=== PATIENT | female | born 1960 | race Hispanic/Latino ===

== ENCOUNTER 2017-06-23 22:44 | Emergency (ER) | payer OTHER ==
[2017-06-23 22:51] VITALS: RESP 16; O2SAT 98
[2017-06-23] MEDS ORDERED: Morphine 4 MG/ML VIAL IVP ONE (23:11)
[2017-06-23] MEDS ORDERED: Sodium Chloride 0.9% 1,000 ML IV STA (23:11)
[2017-06-23] MEDS ORDERED: Morphine 4 MG/ML VIAL ONE ×2 (23:14→23:41)
[2017-06-23 23:30] LABS: BASO # 0.1 K/uL (0.0-0.2); BASO % 0.8 % (0.0-2.0); HEMOGLOBIN 15.1 g/dL (12.0-16.0); LYMPH # 1.2 K/uL (1.0-4.3); LYMPH % 10.1 % (20.0-40.0); MEAN CELL VOLUME 86.7 fl (81.0-99.0); MEAN CORPUSCULAR HEMOGLOBIN 29.1 pg (27.0-31.0); MEAN CORPUSCULAR HGB CONC 33.6 g/dL (33.0-37.0); MEAN PLATELET VOLUME 7.9 fl (7.2-11.7); MONO # 0.7 K/uL (0.0-0.8); NEUT # 10.2 K/uL (1.8-7.0); NEUT % 83.1 % (50.0-75.0); NRBC % 0.1 % (0.0-0.0); RBC 5.19 Mil/uL (3.80-5.20); WHITE BLOOD COUNT 12.3 K/uL (4.8-10.8)
[2017-06-23 23:44] LABS: ALB/GLOB RATIO 1.4 (1.0-2.1); ALBUMIN 4.7 g/dL (3.5-5.0); ALT/SGPT 27 U/L (9-52); AST/SGOT 23 U/L (14-36); BLOOD UREA NITROGEN 15 mg/dl (7-17); CALCIUM 9.9 mg/dL (8.4-10.2); GFR AFRICAN-AMERICAN > 60; GFR NON-AFRICAN AMERICAN > 60; LIPASE 114 U/L (23-300)
[2017-06-23] MEDS ORDERED: Iohexol 240 (50 ml) PO ONE (23:50)
--- NOTE | 2017-06-23 23:54 | ED PDOC ---
HPI: Abdomen Time Seen by Provider: 06/23/17 22:57 Chief Complaint (Nursing): Abdominal Pain Chief Complaint (Provider): abdominal pain History Per: Patient History/Exam Limitations: no limitations Onset/Duration Of Symptoms: Hrs (5), Worse Since Current Symptoms Are (Timing): Still Present Location Of Pain/Discomfort: Diffuse Quality Of Discomfort: "Pain" Associated Symptoms: Nausea, Vomiting (4 episodes), Diarrhea (4 episodes) Additional Complaint(s): 56 y/o female presents to the ED with diffuse abdominal pain onset five hours ago with associated symptoms of nausea, four episodes of non-bilious and non-bloody vomiting, and four episodes of non-bloody diarrhea. Reports the abdominal pain is acute and worse since onset. PMD: Dr. Caicedo Against Medical Advice - AMA Patient Left Against Medical Advice: The patient declines admission to the hospital and wishes to leave the Emergency Department. This action is against my medical advice. This decision was made with informed refusal. The patient was told that admission to the hospital is necessary. Explanation of the reasons why were discussed. The risks of leaving were explained to the patient and include, but are not limited to, worsening of known or currently unknown conditions, permanent disability and from undiagnosed or untreated conditions. The patient has the capacity to make this informed decision and understands my explanation of the current medical problem and risks of leaving. The patient voluntarily accepts these risks and signed an AMA form documenting our conversation. The patient was given the opportunity to ask questions and reconsider. The patient was encouraged to return to the Emergency Department at any time for further care. Past Medical History Reviewed: Historical Data, Nursing Documentation, Vital Signs Vital Signs: Last Vital Signs Temp 99.1 F 06/24/17 01:27 Pulse 81 06/24/17 01:27 Resp 16 06/24/17 01:27 BP 154/85 H 06/24/17 01:27 Pulse Ox 98 06/24/17 01:57 - Medical History PMH: No Chronic Diseases - Surgical History Other surgeries: Hysterectomy - Family History Family History: States: Unknown Family Hx - Social History Current smoker - smoking cessation education provided: No Alcohol: None Drugs: Denies - Allergies Allergies/Adverse Reactions: Allergies Allergy/AdvReac Type Severity Reaction Status Date / Time No Known Allergies Allergy Verified 06/23/17 22:48 Review of Systems ROS Statement: Except As Marked, All Systems Reviewed And Found Negative Gastrointestinal: Positive for: Nausea, Vomiting (four episodes of non-bilious and non-bloody ), Abdominal Pain, Diarrhea (non-bloody) Physical Exam - Reviewed Nursing Documentation Reviewed: Yes Vital Signs Reviewed: Yes - Physical Exam Appears: Positive for: Non-toxic, No Acute Distress, Uncomfortable Head Exam: Positive for: ATRAUMATIC, NORMAL INSPECTION, NORMOCEPHALIC Skin: Positive for: Normal Color, Warm, Dry Eye Exam: Positive for: EOMI, Normal appearance, PERRL ENT: Positive for: Normal ENT Inspection Neck: Positive for: Normal, Painless ROM, Supple. Negative for: Decreased ROM, Limited ROM Cardiovascular/Chest: Positive for: Regular Rate, Rhythm. Negative for: Murmur Respiratory: Positive for: Normal Breath Sounds. Negative for: Decreased Breath Sounds, Accessory Muscle Use, Wheezing Gastrointestinal/Abdominal: Positive for: Tenderness (mild epigastric and right upper quadrant) Back: Positive for: Normal Inspection. Negative for: L CVA Tenderness, R CVA Tenderness Extremity: Positive for: Normal ROM. Negative for: Tenderness, Pedal Edema, Deformity Neurologic/Psych: Positive for: Alert, Oriented (x3), Gait - Laboratory Results Result Diagrams: 06/23/17 23:26 06/23/17 23:26 - ECG O2 Sat by Pulse Oximetry: 98 (RA) Pulse Ox Interpretation: Normal Medical Decision Making Medical Decision Making: Time: 22:58 Initial Impression: 56 y/o female with acute abdominal pain with nausea, vomiting, and diarrhea Initial Plan: --CMP --Lipase Stat --CBC --Famotidine 20mg --Morphine 4mg --Morphine 6mg --Normal Saline 1000mls/hr --Zofran 4mg IV --Urinalysis --Reevaluation Time: 01:15 EXAM: CT Abdomen and Pelvis With Intravenous Contrast FINDINGS: Lower thorax: Small hiatal hernia. ABDOMEN: Liver: Fatty liver. Gallbladder and bile ducts: Unremarkable. No ductal dilation. Pancreas: Prominent pancreatic duct measuring 6 mm. Possible pancreatic divisum. Spleen: Left upper quadrant splenule. Adrenals: Unremarkable. No mass. Kidneys and ureters: Nonobstructive right renal stone. No obstruction. Stomach and bowel: Fluid-filled distal small bowel and terminal ileum with wall thickening. There is diffuse thickening of colon involving mid transverse colon and left colon suspicious for infectious or inflammatory bowel disease. Correlation with clinical data is recommended if Crohn's disease is clinically suspected. No obstruction. Appendix: Prominent appendix measuring 11 mm without surrounding inflammatory change or appendicolith. PELVIS: Bladder: Bladder distention. Correlation with patient's voiding status is recommended. Reproductive: Hysterectomy. ABDOMEN and PELVIS: Intraperitoneal space: Unremarkable. No free air. No significant fluid collection. Bones/joints: No acute fracture. No dislocation. Soft tissues: Unremarkable. Vasculature: There is left upper quadrant mesenteric infiltration with a prominent mesenteric vessel representing focal hemorrhage. No abdominal aortic aneurysm. Pelvic phleboliths. Lymph nodes: Unremarkable. No enlarged lymph nodes. IMPRESSION: 1. There is left upper quadrant mesenteric infiltration with a prominent mesenteric vessel representing focal hemorrhage. 2. Fluid-filled distal small bowel and terminal ileum with wall thickening. There is diffuse thickening of colon involving mid transverse colon and left colon suspicious for infectious or inflammatory bowel disease. Correlation with clinical data is recommended if Crohn's disease is clinically suspected. Addendum Dictated By: ANTHONY GREEN MD Addendum Dictated Date Time:06/24/1701/03/109 Addendum Signed by:ANTHONY GREEN MD Addendum signed Date Time: 06/24/17108 Addendum Transcribed By: FERNANDA Addendum Transcribed Date Time: 06/24/1701/03/109 ERICK/NALLELY EXAM: CT Abdomen and Pelvis With Intravenous Contrast FINDINGS: Lower thorax: Small hiatal hernia. ABDOMEN: Liver: Fatty liver. Gallbladder and bile ducts: Unremarkable. No ductal dilation. Pancreas: Prominent pancreatic duct measuring 6 mm. Possible pancreatic divisum. Spleen: Left upper quadrant splenule. Adrenals: Unremarkable. No mass. Kidneys and ureters: Nonobstructive right renal stone. No obstruction. Stomach and bowel: Fluid-filled distal small bowel and terminal ileum with wall thickening. There is diffuse thickening of colon involving mid transverse colon and left colon suspicious for infectious or inflammatory bowel disease. Correlation with clinical data is recommended if Crohn's disease is clinically suspected. No obstruction. Appendix: Prominent appendix measuring 11 mm without surrounding inflammatory change or appendicolith. PELVIS: Bladder: Bladder distention. Correlation with patient's voiding status is recommended. Reproductive: Hysterectomy. ABDOMEN and PELVIS: Intraperitoneal space: Unremarkable. No free air. No significant fluid collection. Bones/joints: No acute fracture. No dislocation. Soft tissues: Unremarkable. Vasculature: There is left upper quadrant mesenteric infiltration with a prominent mesenteric vessel representing focal hemorrhage. No abdominal aortic aneurysm. Pelvic phleboliths. Lymph nodes: Unremarkable. No enlarged lymph nodes. IMPRESSION: 1. There is left upper quadrant mesenteric infiltration with a prominent mesenteric vessel representing focal hemorrhage. 2. Fluid-filled distal small bowel and terminal ileum with wall thickening. There is diffuse thickening of colon involving mid transverse colon and left colon suspicious for infectious or inflammatory bowel disease. Correlation with clinical data is recommended if Crohn's disease is clinically suspected. Time: :26 Spoke to director of residential services on all Dr. cao. Time: :55 The patient declines admission to the hospital and wishes to leave the Emergency Department. This action is against my medical advice. This decision was made with informed refusal. The patient was told that admission to the hospital is necessary. Explanation of the reasons why were discussed. The risks of leaving were explained to the patient and include, but are not limited to, worsening of known or currently unknown conditions, permanent disability and from undiagnosed or untreated conditions. The patient has the capacity to make this informed decision and understands my explanation of the current medical problem and risks of leaving. The patient voluntarily accepts these risks and signed an AMA form documenting our conversation. The patient was given the opportunity to ask questions and reconsider. The patient was encouraged to return to the Emergency Department at any time for further care. ------- Documented by Bebo Laura acting as a scribe for Eloy Abebe MD. All medical record entries made by the Scribe were at my direction and personally dictated by me. I have reviewed the chart and agree that the record accurately reflects my personal performance of the history, physical exam, medical decision making, and the department course for this patient. I have also personally directed, reviewed, and agree with the discharge instructions and disposition. Disposition - Clinical Impression Clinical Impression: Hemorrhagic enterocolitis - Disposition Disposition: Routine/Home Disposition Time: 01:45 Condition: STABLE
[2017-06-24] MEDS ORDERED: Sodium Chloride 0.9% 100 ML ONE (00:25)
[2017-06-24] MEDS ORDERED: Iohexol 300 100 ML IJ ONE (00:25)
--- NOTE | 2017-06-24 01:04 | CT ---
EXAM: CT Abdomen and Pelvis With Intravenous Contrast CLINICAL HISTORY: 56 years old, female; Pain; Abdominal pain; Generalized; Prior surgery; Surgery date: 6+ months; Surgery type: Hysterectomy; Additional info: Abd pain TECHNIQUE: Axial computed tomography images of the abdomen and pelvis with intravenous contrast. All CT scans at this facility use one or more dose reduction techniques, viz.: automated exposure control; ma/kV adjustment per patient size (including targeted exams where dose is matched to indication; i.e. head); or iterative reconstruction technique. 558 images are submitted. Coronal and sagittal reformatted images were created and reviewed. Axial reformatted images were created and reviewed. CONTRAST: 90 mL of administered intravenously. COMPARISON: No relevant prior studies available. FINDINGS: Lower thorax: Small hiatal hernia. ABDOMEN: Liver: Fatty liver. Gallbladder and bile ducts: Unremarkable. No ductal dilation. Pancreas: Prominent pancreatic duct measuring 6 mm. Possible pancreatic divisum. Spleen: Left upper quadrant splenule. Adrenals: Unremarkable. No mass. Kidneys and ureters: Nonobstructive right renal stone. No obstruction. Stomach and bowel: Fluid-filled distal small bowel and terminal ileum with wall thickening. There is diffuse thickening of colon involving mid transverse colon and left colon suspicious for infectious or inflammatory bowel disease. Correlation with clinical data is recommended if Crohn's disease is clinically suspected. No obstruction. Appendix: Prominent appendix measuring 11 mm without surrounding inflammatory change or appendicolith. PELVIS: Bladder: Bladder distention. Correlation with patient's voiding status is recommended. Reproductive: Hysterectomy. ABDOMEN and PELVIS: Intraperitoneal space: Unremarkable. No free air. No significant fluid collection. Bones/joints: No acute fracture. No dislocation. Soft tissues: Unremarkable. Vasculature: There is left upper quadrant mesenteric infiltration with a prominent mesenteric vessel representing focal hemorrhage. No abdominal aortic aneurysm. Pelvic phleboliths. Lymph nodes: Unremarkable. No enlarged lymph nodes. IMPRESSION: 1. There is left upper quadrant mesenteric infiltration with a prominent mesenteric vessel representing focal hemorrhage. 2. Fluid-filled distal small bowel and terminal ileum with wall thickening. There is diffuse thickening of colon involving mid transverse colon and left colon suspicious for infectious or inflammatory bowel disease. Correlation with clinical data is recommended if Crohn's disease is clinically suspected.
[2017-06-24 01:09] LABS: URINE BACTERIA RARE (<OCC); URINE BILIRUBIN NEGATIVE (NEGATIVE); URINE BLOOD SMALL (NEGATIVE); URINE CLARITY CLEAR (Clear); URINE COLOR STRAW (YELLOW); URINE GLUCOSE (UA) NEG (Normal); URINE LEUKOCYTE ESTERASE TRACE Leu/uL (Negative); URINE PROTEIN NEGATIVE (NEGATIVE); URINE UROBILINOGEN 0.2-1.0 mg/dL (0.2-1.0)
[2017-06-24] MEDS ORDERED: Sodium Chloride 0.9% 1,000 ML IV STA ×2 (01:09→01:25)
[2017-06-24 01:28] VITALS: BP 154/85; PULSE 81; TEMP 99.1
== END 2017-06-24 02:00 | disposition left against medical advice (07) ==
LOC: H.ER 22:44 → H.ERHOLD 06-24 01:24 → UNDOADMIN 06-24 01:24 → UNDODISIN 06-24 02:37
DX: K55.059 Acute (reversible) ischemia of intestine, part and extent unspecified (principal)
CPT/HCPCS: 74177; 80053; 81003; 81025; 83690; 85025; 96361; 96374; 96375; 96376; 99283; J1170; J2270; J2405; J7040; Q9967